=== PATIENT | male | born 1995 | race Caucasian/White ===

== ENCOUNTER 2017-07-24 12:15 | Emergency (ER) | payer MEDICAID, OTHER ==
[~2017-07-24] VITALS: Ht 175.3 cm; Wt 70.3 kg
--- NOTE | 2017-07-24 12:15 | NUR ---
PT [facility] BLS TO ER BED 07
[2017-07-24 12:20] VITALS: BP 130/78
--- NOTE | 2017-07-24 12:20 | NUR ---
21m biba with c/o 8/10 bl frontal headache since this am. Patient states history of migraine. Patient states headache today is similar migraines in the past but worse today. Patient also reports of n/v and photophobia. Patients any changes in vision or dizziness. Patient is aox4. GCS=15. RR are even and unlabored. VSS. Awaiting er md wetzel. Patient changed into gown. Will continue to monitor.
[2017-07-24] MEDS ORDERED: NACL 0.9% 1,000 ML IV ONE (12:24)
[2017-07-24] MEDS ORDERED: diphenhydrAMINE 50 MG/ML VIAL IVP ONE (12:25)
[2017-07-24] MEDS ORDERED: PROCHLORPERAZINE 10 MG/2 ML VIAL IVP ONE (12:25)
--- NOTE | 2017-07-24 12:33 | NUR ---
er md tam by bedside examining patient
[2017-07-24 14:20] VITALS: BP 119/65
== END 2017-07-24 14:20 | disposition home or self-care (01) ==
LOC: MED 12:15
DX: R51 Headache (principal); R11.2 Nausea with vomiting, unspecified
CPT/HCPCS: 96361; 96374; 96375; 99285; J0780; J1200; J7030